=== PATIENT | female | born 1985 | race Caucasian/White ===

== ENCOUNTER 2022-03-27 11:24 | Outpatient (CLI) | payer OTHER, SELFPAY ==
--- NOTE | ~2022-03-27 | XR_ITS ---
EXAMINATION: XR hysterosalpingogram INDICATION: Infertility TECHNIQUE: Hysterosalpingogram was performed by Dr. Sanjana Holloway MD with fluoroscopic quin martinez. I was present to obtain fluoroscopic images. Fluoroscopy exposure time was 0.6 minutes. The DAP f or this procedure was 6.692 Gycm2. FINDINGS: Brim Rounder radiograph demonstrates an unremarkable pelvis. Fluoroscopic images demonstrate a no rmal appearing endometrial cavity which has been cannulated. Upon injection of contrast, both fallop eve tubes opacify and are normal in appearance. There is free spillage bilaterally. Uterus is withou t evidence of synechia. IMPRESSION: Patent fallopian tubes. Reviewed, dictated and finalized at location A. IMPRESSION: Patent fallopian tubes.
== END 2022-03-27 11:25 | disposition home or self-care (01) ==
LOC: ANHIMG 11:32
PROVIDERS: PCP Family Medicine; Visit Provider Obstetrics & Gynecology Gynecology
DX: Z31.41 Encounter for fertility testing (principal)
CPT/HCPCS: 58340; 74740; Q9966